=== PATIENT | female | born 1980 | race Caucasian/White ===

== ENCOUNTER 2018-01-10 18:10 | Emergency (ER) | payer MEDICAID, SELFPAY ==
--- NOTE | 2018-01-10 19:34 | XR_ITS ---
XR chest 2V HISTORY: ITS.REASON: COUGH/WHEEZE ORDERING PHYSICIAN: Priscilla Santana PATIENT AGE: 37 years COMPARISON: None available FINDINGS: The cardiomediastinal silhouette and pulmonary vascularity are within normal limits. The lungs are clear without infiltrates, suspicious nodules, or pleural effusions. No acute bony abnormalities. IMPRESSION: Negative chest, no acute finding
[2018-01-10 19:35] VITALS: BP 155/87; PULSE 81; RESP 20; TEMP 37.1; O2SAT 97; BMI 27.3
--- NOTE | 2018-01-10 20:07 | HMH.EDUTC ---
[facility] [place] Disposition Clinical Impression: Acute bronchitis Qualifiers: Bronchitis organism: unspecified organism Qualified Code(s): J20.9 - Acute bronchitis, unspecified Disposition: Home, Self-Care Condition on Discharge: Good Instructions: DI for Acute Bronchitis Additional Instructions: * STOP SMOKING!!!! * start antibiotic today. Be sure to complete entire prescription even if feeling better. Your chest xray was negative but given the length of time you have had your cough, your smoking and the sudden worsening of symptoms, complete it * Monitor Temp. Follow up if fever develops * humidifier/vaporizer/hot steamy shower * Inhaler every 4-6 hours as needed like we discussed. If unsure how to use it, ask pharmacist to demonstrate how. Should help open airways and improve cough, wheezing, shortness of breath. * Tessalon Perles will not cause drowsiness but should help stop your cough so you can sleep. No more then three times a day. If cough becomes productive, meaning you have sputum, stop these and start mucinex * Start steroid tomorrow since you had solu medrol injection in clinic. Helps with inflammation therefore, cough and wheezing. Follow directions on package. Rvwd side effects. Pt reports they have taken them before. * Seek treatment IMMEDIATELY for new or worsening symptoms OR no noticeable improvement over the next 48-72 hours. 911 for difficulty breathing Prescriptions: Albuterol Sulfate [Albuterol HFA Inhaler] 1 - 2 puffs IH Q4-6H PRN #1 inh PRN Reason: Shortness Of Breath Or Wheezing Azithromycin [Z-Roderick 250mg Tab] 250 mg PO UD DOSE PK #6 tab Benzonatate [Benzonatate 200mg Cap] 200 mg PO TID PRN #30 cap PRN Reason: Cough methylPREDNISolone [Medrol] 4 mg PO DIRECTED #1 tab.ds.pk Time of Disposition: 21:03 Medical Decision Making Vital Signs: 01/10/18 19:35 Temperature 98.7 F Temperature Source Temporal Artery Scan Pulse Rate [Right Brachial] 81 Respiratory Rate 20 Blood Pressure [Right Arm] 155/87 Blood Pressure Mean [Right Arm] 109 Blood Pressure Source [Right Arm] Automatic Cuff Blood Pressure Position [Right Arm] Sitting 02 Sat by Pulse Oximetry 97 Oxygen Delivery Method Room Air Orders (Tests/Meds): ED MEDICATIONS Discontinued Medications Generic Name Dose Route Start Last Admin Trade Name Freq PRN Reason Stop Dose Admin Albuterol/Ipratropium 3 ml 01/10/18 20:11 01/10/18 20:39 Duoneb 3ml Neb IH 01/10/18 20:12 3 ml ONCE ONE Administration Methylprednisolone Sodium Succinate 125 mg 01/10/18 20:11 01/10/18 20:21 Solu-Medrol 125mg/2ml Vial IM 01/10/18 20:12 125 mg ONCE ONE Administration - Radiology Data #1 Image(s): Chest Image Reviewed: Yes I have reviewed radiologist's interpretation Preliminary Findings: Normal/NAD - Jeffery Inquiry Pt receiving controlled substance: No - Reevaluation(s) Time: 20:57 Reevaluation #1: Cough persistent. pt adamant cough has been dry and nonproductive. No chest congestion or sputum. Rvwd CXR. Wheezing improved. [facility] [place] HPI - General Stated complaint: cough Time Seen by Provider: 01/10/18 20:07 Mode of Arrival: Ambulatory Source of Information: Patient Limitations: No Limitations Description of Symptoms (Recalled from Triage Doc. by RN): reports deep cough x2 weeks, pt reports waking up with swelling of hands and feet. HEENT Symptoms (Recalled from RN notes): No Resp Symptoms (Recalled from RN notes): Yes (cough x 2 weeks) Skin Symptoms (Recalled from RN notes): Yes (reports has been waking up with swelling of hands and feet) MS Symptoms (Recalled from RN notes): No Functional Status (Recalled from RN notes): n/a - History of Present Illness Provider Complaint: c/o persistant nonprod cough x 2 weeks that suddenly worsened 2-3 days ago. Now cough nearly nonstop . Worse with activity, talking. SOA and wheezing at times. No known sick contact. No fever. pt reports she doesn't feel bad except for cough. Can't sleep
--- NOTE | 2018-01-10 20:11 | ED_ITS ---
[facility] [place] Clinical Impression: Acute bronchitis Qualifiers: Bronchitis organism: unspecified organism Qualified Code(s): J20.9 - Acute bronchitis, unspecified Disposition: Home, Self-Care Condition on Discharge: Good Instructions: DI for Acute Bronchitis Additional Instructions: * STOP SMOKING!!!! * start antibiotic today. Be sure to complete entire prescription even if feeling better. Your chest xray was negative but given the length of time you have had your cough, your smoking and the sudden worsening of symptoms, complete it * Monitor Temp. Follow up if fever develops * humidifier/vaporizer/hot steamy shower * Inhaler every 4-6 hours as needed like we discussed. If unsure how to use it, ask pharmacist to demonstrate how. Should help open airways and improve cough, wheezing, shortness of breath. * Tessalon Perles will not cause drowsiness but should help stop your cough so you can sleep. No more then three times a day. If cough becomes productive, meaning you have sputum, stop these and start mucinex * Start steroid tomorrow since you had solu medrol injection in clinic. Helps with inflammation therefore, cough and wheezing. Follow directions on package. Rvwd side effects. Pt reports they have taken them before. * Seek treatment IMMEDIATELY for new or worsening symptoms OR no noticeable improvement over the next 48-72 hours. 911 for difficulty breathing Prescriptions: Albuterol Sulfate [Albuterol HFA Inhaler] 1 - 2 puffs IH Q4-6H PRN #1 inh PRN Reason: Shortness Of Breath Or Wheezing Azithromycin [Z-Roderick 250mg Tab] 250 mg PO UD DOSE PK #6 tab Benzonatate [Benzonatate 200mg Cap] 200 mg PO TID PRN #30 cap PRN Reason: Cough methylPREDNISolone [Medrol] 4 mg PO DIRECTED #1 tab.ds.pk Time of Disposition: 21:03 Medical Decision Making Vital Signs: 01/10/18 19:35 Temperature 98.7 F Temperature Source Temporal Artery Scan Pulse Rate [Right Brachial] 81 Respiratory Rate 20 Blood Pressure [Right Arm] 155/87 Blood Pressure Mean [Right Arm] 109 Blood Pressure Source [Right Arm] Automatic Cuff Blood Pressure Position [Right Arm] Sitting 02 Sat by Pulse Oximetry 97 Oxygen Delivery Method Room Air Orders (Tests/Meds): ED MEDICATIONS Discontinued Medications Generic Name Dose Route Start Last Admin Trade Name Freq PRN Reason Stop Dose Admin Albuterol/Ipratropium 3 ml 01/10/18 20:11 01/10/18 20:39 Duoneb 3ml Neb IH 01/10/18 20:12 3 ml ONCE ONE Administration Methylprednisolone Sodium Succinate 125 mg 01/10/18 20:11 01/10/18 20:21 Solu-Medrol 125mg/2ml Vial IM 01/10/18 20:12 125 mg ONCE ONE Administration - Radiology Data #1 Image(s): Chest Image Reviewed: Yes I have reviewed radiologist's interpretation Preliminary Findings: Normal/NAD - Jeffery Inquiry Pt receiving controlled substance: No - Reevaluation(s) Time: 20:57 Reevaluation #1: Cough persistent. pt adamant cough has been dry and nonproductive. No chest congestion or sputum. Rvwd CXR. Wheezing improved. [facility] [place] [facility] [place] - General Stated complaint: cough Time Seen by Provider: 01/10/18 20:07 Mode of Arrival: Ambulatory Source of Information: Patient Limitations: No Limitations Description of Symptoms (Recalled from Triage Doc. by RN): reports deep cough x2 weeks, pt reports waking up with swelling of hands and feet. HEENT Symptoms (Recalled from RN notes)
[2018-01-10 21:06] VITALS: BP 146/84; PULSE 91; RESP 20; TEMP 36.7; O2SAT 96
== END 2018-01-10 21:07 | disposition home or self-care (01) ==
PROVIDERS: Emergency Provider Nurse Practitioner Family; Family Provider Family Medicine
DX: J20.9 Acute bronchitis, unspecified (principal); F17.210 Nicotine dependence, cigarettes, uncomplicated; Z90.49 Acquired absence of other specified parts of digestive tract
CPT/HCPCS: 71046; 96372; 99202